=== PATIENT | female | born 1930 | race Caucasian/White ===

== ENCOUNTER 2018-02-10 08:24 | Observation (INO) | payer MEDICARE, OTHER ==
[2018-02-10 09:00] LABS: Hematocrit 42.9 % (37.0-47.0); Hemoglobin 13.8 gm/dL (12.5-16.0); Mean Cell Volume 91.9 fl (78-100); Mean Corpuscular Hemoglobin 29.6 pg (27-31); Mean Corpuscular Hgb Conc 32.2 g/dl (32-36); Mean Platelet Volume 9.9 fl (8-12.5); Neutrophil # 17.4 K/mm3 (1.3-6.0); Neutrophil % 93.1 % (42-75.0); Platelet Count 207 K/mm3 (150-450); Red Blood Count 4.67 M/mm3 (4.2-5.4); Red Cell Distribution Width 13.7 % (11.5-14.0); White Blood Count 18.7 K/mm3 (4.0-10.5)
[2018-02-10 09:12] LABS: Albumin * 3.3 gm/dl (3.4-5.0); Anion Gap 14.8 mmol/L (6.8-13.8); BUN/Creatinine Ratio 15.6 (9.0-21.6); Bilirubin, Total 0.5 mg/dL (0.0-1.1); Ca. Corrected For Albumin 9.5 mg/dL (8.4-10.2); Calcium * 9.3 mg/dL (7.9-10.9); Carbon Dioxide 26.2 mmol/L (24-32.6); Total Protein 7.4 gm/dL (6.2-8.2)
[2018-02-10] MEDS ORDERED: DEXTROSE 5 % IN WATER 100 ML BAG IV ONE (10:46)
--- NOTE | 2018-02-10 10:49 | ERNOTE ---
Time Seen by Provider: 02/10/18 10:28 Stated Complaint: URI Presenting Symptoms:: cough, fever, other - restless and apparently short of breath Source: snf records Exam Limitations: dementia Immunizations: IMMUNIZATION HX Immunizations Up to Date Yes History of Influenza Vaccine Yes Allergies/Adverse Reactions: Allergies No Known Allergies Allergy (Verified 02/10/18 08:46) Home Medications: HOME MEDICATIONS Atorvastatin Calcium [Lipitor] 10 mg PO DAILY 01/02/18 [Last Taken Unknown] Carbamide Peroxide [Debrox] 3 drp OTIC (EAR) Q7D 01/02/18 [Last Taken Unknown] Carboxymethylcellulose Sodium [Refresh Tears] 1 drp OPHTHALMIC (EYE) BID 01/02/18 [Last Taken Unknown] Cetirizine HCl [Zyrtec] 10 mg PO HS 01/02/18 [Last Taken Unknown] Cholecalciferol (Vitamin D3) [Vitamin D3] 2,000 unit PO DAILY 01/02/18 [Last Taken Unknown] Cyanocobalamin (Vitamin B-12) [Vitamin B-12] 1,000 mcg PO DAILY 01/02/18 [Last Taken Unknown] Fluticasone Propionate [Flovent Diskus] 50 mcg INHALATION BID 01/02/18 [Last Taken Unknown] Latanoprost/Pf [Latanoprost 0.005% Eye Drop] 1 drp EACHEYE HS 01/02/18 [Last Taken Unknown] Oxybutynin Chloride [Ditropan] 5 mg PO DAILY 01/02/18 [Last Taken Unknown] Sennosides/Docusate Sodium [Docusate Sodium-Sennosides Tab] 2 ea PO HS 01/02/18 [Last Taken Unknown] Sertraline HCl [Zoloft] 50 mg PO DAILY 01/02/18 [Last Taken Unknown] Wheat Dextrin [Benefiber] 1 ea PO DAILY 01/02/18 [Last Taken Unknown] acetaminophen 325 mg tablet 650 mg PO Q8H PRN tab 01/09/18 [Last Taken Unknown] benzonatate 200 mg capsule 200 mg PO TID PRN 01/09/18 [Last Taken Unknown] bisacodyl 10 mg rectal suppository 10 mg [place] DAILY PRN 01/09/18 [Last Taken Unknown] bisacodyl 5 mg tablet 10 mg PO .COMPLEX PRN tab 01/09/18 [Last Taken Unknown] hydrocodone 5 mg-acetaminophen 325 mg tablet 1 tab PO Q4H PRN 01/09/18 [Last Taken Unknown] magnesium hydroxide 400 mg/5 mL oral suspension 5 ml PO DAILY PRN 01/09/18 [Last Taken Unknown] alprazolam 0.25 mg tablet 0.25 mg PO BID-TID PRN 02/04/18 [Last Taken Unknown] furosemide 20 mg tablet 20 mg PO DAILY 02/04/18 [Last Taken Unknown] potassium chloride ER 10 mEq capsule,extended release 10 meq PO DAILY 02/04/18 [Last Taken Unknown] - History of Present Ilness Narrative: Patient has been more restless and irritable at the sn[facility] and was found to have a fever and to be apparently short of breath. Onset has been over the past 24 hours Timing: getting worse Severity: moderate Frequency/Possible Cause: Reports: no prior episodes Modifying Factors - Improves: Reports: nothing Modifying Factors - Worsens: Reports: nothing Associated Symptoms: Reports: cough Review of Systems - Review of Systems Constitutional: Present: See HPI EYE: Present: no symptoms reported ENT: Present: no symptoms reported Respiratory: Present: See HPI Cardiology: Present: no symptoms reported Gastrointestinal/Abdominal: Present: no symptoms reported Genitourinary: Present: no symptoms reported Musculoskeletal: Present: no symptoms reported Skin: Present: no symptoms reported Neurological: Present: other - dementia Endocrine: Present: no symptoms reported Hematologic/Lymphatic: Present: no symptoms reported Psych: Present: no symptoms reported Medical History (Last Reviewed 02/10/18 @ 08:46 by Janet Gar RN) Knee pain (Chronic) Dementia (Chronic) Osteoarthritis (Chronic) Hyperlipidemia (Chronic) Essential hypertension (Chronic) Type II diabetes mellitus (Chronic) Dementia Depressive disorder Left patella fracture Onset Date: ~2017 Tibial plateau fracture, left Onset Date: ~01/01/18 Urinary incontinence Surgical History: Surgical History (Last Reviewed 02/10/18 @ 08:46 by Janet Gar RN) Pacemaker Family History: Family History (Last Reviewed 02/10/18 @ 08:46 by Janet Gar RN) Mother Medical history unknown Father Medical history unknown Other unknown Social History: Preferred Language Greenlandic Do you have any roman catholic or Yes: denominational cultural preference? Smoking Status Unknown if ever smoked Alcohol Use sober Drug Use none (Last Updated 02/04/18 @ 16:29 by Claudio Denson MD) No Social History Section defined Physical Exam - Physical Exam General Appearance: Present: wd/wn, alert, moderate distress Head Exam: Present: normal inspection, no evidence of injury Eye Exam: Normal inspection: bilateral, PERRL: bilateral Ears, Nose, Throat: Present: normal ENT inspection, H, normal pharynx Neck: Present: normal inspection, nontender Respiratory: Present: no accessory muscle use, chest nontender, rales Cardiovascular/Chest: Present: regular rate, rhythm, no murmur, normal peripheral pulses Gastrointestinal/Abdominal: Present: normal bowel sounds, nontender, nondistended, soft, no organomegaly Rectal Exam: Present: deferred Pelvic Exam: Present: deferred Back Exam: Present: normal inspection, normal range of motion Extremity Exam: Present: normal inspection, non-tender, no edema, normal range of motion Neurological Exam: Present: alert, oriented, normal mood/affect Skin Exam: Present: normal color, warm/dry Lymphatic Exam: Present: no adenopathy ED Progress - Results and Orders Patient's Lab Results:: I have reviewed the patient's lab results. - Vital Signs Patient's Vital Signs:: I have reviewed the patient's vital signs. Vital Signs: Vital Signs 02/10/18 08:25 02/10/18 08:56 Temperature 38.1 C H 37.4 C Pulse Rate 92 Respiratory Rate 24 H Blood Pressure 141/90 H O2 Sat by Pulse Oximetry 90 L - X-Ray X-Ray #1 X-Ray: chest Interpretation: Reviewed by me - Progress/Reassessment Chief Complaint: Upper Respiratory Symptoms Plan - Plan Plan: Patient will be admitted for IV antibiotics, stabilization of the borderline hypoxia and hopefully be able to be moved over to oral antibiotics and then back to the snf Departure Clinical Impression: Pneumonia Qualifiers: Pneumonia type: due to unspecified organism Laterality: bilateral Lung location: unspecified part of lung Qualified Code(s): J18.9 - Pneumonia, unspe cified organism - Departure Disposition: Still a patient Condition: Fair Referrals: Dayanara Torres DO [Primary Care Provider] -
--- NOTE | 2018-02-10 12:08 | HP ---
Chief Complaint - Chief Complaint Date of Service: 02/10/18 Time of Service: 12:07 Chief Complaint: shortness of breath/fever. History of Present Illness: Leah Villegas, is an 87-year-old white female, with previous medical history of hypertension, hyperlipidemia, diabetes mellitus type 2, dementia, who was admitted on 02/10/2018 because of shortness of breath and fever. I am not able to get any history and physical from Nichole Estrella. My history is based on the emergency room notes which said that patient had been more restless and irritable at the residential on the day of admission. She was found to have a fever and was apparently short of breath and so she was sent to the emergency room. She was found to have an elevated white blood cell count of 18.7 and a chest x-ray which showed basilar opacities which could be atelectasis but cannot rule out multifocal pneumonia. She was then admitted for further treatment. Medical History (Last Reviewed 02/10/18 @ 12:17 by Kylah Mandel RN) Knee pain (Chronic) Dementia (Chronic) Osteoarthritis (Chronic) Hyperlipidemia (Chronic) Essential hypertension (Chronic) Type II diabetes mellitus (Chronic) Dementia Depressive disorder Left patella fracture Onset Date: ~2017 Tibial plateau fracture, left Onset Date: ~01/01/18 Urinary incontinence Surgical History: Surgical History (Last Reviewed 02/10/18 @ 12:17 by Kylah Mandel RN) Pacemaker Family History: Family History (Last Updated 02/10/18 @ 12:17 by Kylah Mandel RN) Mother Medical history unknown Father Medical history unknown Social History: Patient Lives/Resources [facility] Utilized Preferred Language Estonian Do you have any zoroastrianism or Yes: sikhism cultural preference? Smoking Status Unknown if ever smoked Have you smoked in the past 12 No months Alcohol Use sober Drug Use none (Last Updated 02/04/18 @ 16:29 by Claudio Denson MD) No Social History Section defined Review Of Systems (GEN) - Review of Systems Additional Comments: unobtainable due to dementia Immunizations: IMMUNIZATION HX Immunizations Up to Date Yes History of Influenza Vaccine Yes Allergies/Adverse Reactions: Allergies Allergy/AdvReac Type Severity Reaction Status Date / Time No Known Allergies Allergy Verified 02/10/18 11:42 Home Medications: HOME MEDICATIONS Atorvastatin Calcium [Lipitor] 10 mg PO DAILY 01/02/18 [Last Taken Unknown] Carbamide Peroxide [Debrox] 3 drp OTIC (EAR) Q7D 01/02/18 [Last Taken Unknown] Carboxymethylcellulose Sodium [Refresh Tears] 1 drp OPHTHALMIC (EYE) BID 01/02/18 [Last Taken Unknown] Cetirizine HCl [Zyrtec] 10 mg PO HS 01/02/18 [Last Taken Unknown] Cholecalciferol (Vitamin D3) [Vitamin D3] 2,000 unit PO DAILY 01/02/18 [Last Taken Unknown] Cyanocobalamin (Vitamin B-12) [Vitamin B-12] 1,000 mcg PO DAILY 01/02/18 [Last Taken Unknown] Fluticasone Propionate [Flovent Diskus] 1 spray NS BID 01/02/18 [Last Taken Unknown] Latanoprost/Pf [Latanoprost 0.005% Eye Drop] 1 drp EACHEYE HS 01/02/18 [Last Taken Unknown] Oxybutynin Chloride [Ditropan] 5 mg PO DAILY 01/02/18 [Last Taken Unknown] Sennosides/Docusate Sodium [Docusate Sodium-Sennosides Tab] 2 ea PO HS 01/02/18 [Last Taken Unknown] Sertraline HCl [Zoloft] 50 mg PO DAILY 01/02/18 [Last Taken Unknown] acetaminophen 325 mg tablet 650 mg PO Q8H PRN tab 01/09/18 [Last Taken Unknown] benzonatate 200 mg capsule 200 mg PO TID PRN 01/09/18 [Last Taken Unknown] bisacodyl 10 mg rectal suppository 10 mg [place] DAILY PRN 01/09/18 [Last Taken Unknown] bisacodyl 5 mg tablet 10 mg PO Q48H PRN tab 01/09/18 [Last Taken Unknown] hydrocodone 5 mg-acetaminophen 325 mg tablet 1 tab PO Q4H PRN 01/09/18 [Last Taken Unknown] magnesium hydroxide 400 mg/5 mL oral suspension 30 ml PO DAILY PRN 01/09/18 [Last Taken Unknown] alprazolam 0.25 mg tablet 0.25 mg PO TID 02/04/18 [Last Taken Unknown] furosemide 20 mg tablet 20 mg PO DAILY 02/04/18 [Last Taken Unknown] Potassium Chloride 10 meq PO DAILY 02/10/18 [Last Taken Unknown] Wheat Dextrin [Benefiber] 1 each PO BID 02/10/18 [Last Taken Unknown] Exam - Exam Vital Signs: Vital Signs - Last Taken Temp 37.1 C 02/10/18 11:42 Pulse 90 02/10/18 11:42 Resp 25 H 02/10/18 11:42 BP 111/70 02/10/18 11:42 Pulse Ox 89 L 02/10/18 11:42 Constitutional: Present: Alert - x 1, Mild distress, Elderly ENT Exam: Present: hard of hearing Eye Exam: bilateral eye: normal inspection, PERRL, EOMI Neck: Present: supple Respiratory: Present: decreased breath sounds, rhonchi, No wheezing Cardiovascular/Chest: Present: regular rate, rhythm, no JVD, no murmur Abdomen: Present: Normal bowel sounds, soft, nontender, nondistended Extremity: Present: no pedal edema, no calf tenderness Diagnostic Studies: Abnormal Lab Results 02/10/18 02/10/18 Range/Units 08:55 08:55 WBC 18.7 H (4.0-10.5) K/mm3 Immature Gran # (Auto) 0.08 H (0.000-0.0310) K/mm3 Neutrophils % 93.1 H (42-75.0) % Lymphocytes % 4.0 L (20-51) % Neutrophils # 17.4 H (1.3-6.0) K/mm3 Lymphocytes # 0.75 L (1.5-3.5) k/mm3 Anion Gap 14.8 H (6.8-13.8) mmol/L Est GFR (Non-Af Amer) 58 L (60-130) mL/min Random Glucose 179 H (70-110) mg/dL Albumin 3.3 L (3.4-5.0) gm/dl Laboratory Results WBC 18.7 K/mm3 (4.0-10.5) H 02/10/18 08:55 RBC 4.67 M/mm3 (4.2-5.4) 02/10/18 08:55 Hgb 13.8 gm/dL (12.5-16.0) 02/10/18 08:55 Hct 42.9 % (37.0-47.0) 02/10/18 08:55 MCV 91.9 fl (78-100) 02/10/18 08:55 MCH 29.6 pg (27-31) 02/10/18 08:55 MCHC 32.2 g/dl (32-36) 02/10/18 08:55 RDW 13.7 % (11.5-14.0) 02/10/18 08:55 Plt Count 207 K/mm3 (150-450) 02/10/18 08:55 MPV 9.9 fl (8-12.5) 02/10/18 08:55 Immature Gran % (Auto) 0.40 % (0.001-0.429) 02/10/18 08:55 Immature Gran # (Auto) 0.08 K/mm3 (0.000-0.0310) H 02/10/18 08:55 Neutrophils % 93.1 % (42-75.0) H 02/10/18 08:55 Lymphocytes % 4.0 % (20-51) L 02/10/18 08:55 Monocytes % 2.1 % (0.0-9) 02/10/18 08:55 Eosinophils % 0.2 % (0.0-3.0) 02/10/18 08:55 Basophils % 0.2 % (0.0-1.0) 02/10/18 08:55 Nucleated RBC % 0.0 k/mm3 (0-1) 02/10/18 08:55 Neutrophils # 17.4 K/mm3 (1.3-6.0) H 02/10/18 08:55 Lymphocytes # 0.75 k/mm3 (1.5-3.5) L 02/10/18 08:55 Monocytes # 0.4 k/mm3 (0.0-1.0) 02/10/18 08:55 Eosinophils # 0.0 k/mm3 (0.0-0.7) 02/10/18 08:55 Absolute Basophils 0.0 k/mm3 (0.0-0.1) 02/10/18 08:55 Sodium 141 mmol/L (132-142) 02/10/18 08:55 Plasma Sodium 142 mmol/L (130-142) 02/10/18 08:55 Potassium 4.0 mmol/L (3.4-4.6) 02/10/18 08:55 Chloride 104 mmol/L (97-106) 02/10/18 08:55 Carbon Dioxide 26.2 mmol/L (24-32.6) 02/10/18 08:55 Anion Gap 14.8 mmol/L (6.8-13.8) H 02/10/18 08:55 BUN 15 mg/dL (3-23) 02/10/18 08:55 Creatinine 0.96 mg/dL (0.4-1.4) 02/10/18 08:55 Est GFR (Non-Af Amer) 58 mL/min (60-130) L 02/10/18 08:55 BUN/Creatinine Ratio 15.6 (9.0-21.6) 02/10/18 08:55 Random Glucose 179 mg/dL (70-110) H 02/10/18 08:55 Calcium 9.3 mg/dL (7.9-10.9) 02/10/18 08:55 Calcium Adj for Albumin 9.5 mg/dL (8.4-10.2) 02/10/18 08:55 Total Bilirubin 0.5 mg/dL (0.0-1.1) 02/10/18 08:55 AST 27 U/L (0-48) 02/10/18 08:55 ALT 19 U/L (19-67) 02/10/18 08:55 Alkaline Phosphatase 143 U/L (50-170) 02/10/18 08:55 Total Protein 7.4 gm/dL (6.2-8.2) 02/10/18 08:55 Albumin 3.3 gm/dl (3.4-5.0) L 02/10/18 08:55 Assessment/Plan - Assessment/Plan (1) Pneumonia Assessment: will continue with IV antibiotics. Problem: Acute Qualifiers: Pneumonia type: due to unspecified organism Laterality: bilateral Lung location: unspecified part of lung Qualified Code(s): J18.9 - Pneumonia, unspecified organism (2) Dementia Problem: Chronic Qualifiers: Dementia type: unspecified type Dementia behavioral disturbance: without behavioral disturbance Qualified Code(s): F03.90 - Unspecified dementia without behavioral disturbance (3) Hyperlipidemia Problem: Chronic Qualifiers: Hyperlipidemia type: unspecified Qualified Code(s): E78.5 - Hyperlipidemia, unspecified (4) Essential hypertension Problem: Chronic
[2018-02-10] MEDS ORDERED: MAGNESIUM HYDROXIDE 30 ML UDC PO PRN (15:14)
[2018-02-10] MEDS ORDERED: BENZONATATE 100 MG CAPSULE PO PRN (15:14)
[2018-02-10] MEDS ORDERED: BISACODYL 5 MG TABLET.DR PO PRN (15:14)
[2018-02-10] MEDS ORDERED: ACETAMINOPHEN 325 MG TABLET PO PRN (15:14)
[2018-02-10] MEDS ORDERED: BUDESONIDE 0.5 MG/2 ML VIAL.NEB IH ONE (16:41)
[2018-02-10] MEDS: ALPRAZolam 0.25 MG TABLET PO SCH (17:34)
[2018-02-10] MEDS: BUDESONIDE 0.5 MG/2 ML VIAL.NEB IH SCH ×2 (17:41→19:07)
[2018-02-10] MEDS ORDERED: LORATADINE 10 MG TABLET PO SCH (21:00)
[2018-02-10] MEDS ORDERED: LATANOPROST 25 DROP BTL EACHEYE SCH (21:00)
[2018-02-10] MEDS ORDERED: SENNOSIDES/DOCUSATE SODIUM 1 TAB TABLET PO SCH (21:00)
[2018-02-10] MEDS: POLYVINYL ALCOHOL 150 DROP BTL OP SCH (21:45)
[2018-02-10] MEDS: NYSTATIN 15 APPL BTL TP SCH (21:48)
[2018-02-10] MEDS: PSYLLIUM SEED 1 PACKET PACKET PO SCH (21:55)
[2018-02-11] MEDS: BUDESONIDE 0.5 MG/2 ML VIAL.NEB IH SCH (06:20)
[2018-02-11] MEDS ORDERED: OXYBUTYNIN CHLORIDE 5 MG TABLET PO SCH (09:00)
[2018-02-11] MEDS ORDERED: POTASSIUM CHLORIDE 10 MEQ TABLET.SA PO SCH (09:00)
[2018-02-11] MEDS ORDERED: CYANOCOBALAMIN 1,000 MCG TABLET PO SCH (09:00)
[2018-02-11] MEDS ORDERED: SERTRALINE HCL 50 MG TABLET PO SCH (09:00)
[2018-02-11] MEDS ORDERED: FUROSEMIDE 20 MG TABLET PO SCH (09:00)
[2018-02-11] MEDS ORDERED: CHOLECALCIFEROL 1,000 UNIT CAPSULE PO SCH (09:00)
[2018-02-11] MEDS ORDERED: ROSUVASTATIN CALCIUM 10 MG TABLET PO SCH (09:00)
[2018-02-11] MEDS: ALPRAZolam 0.25 MG TABLET PO SCH ×2 (10:25→13:17)
[2018-02-11] MEDS: POLYVINYL ALCOHOL 150 DROP BTL OP SCH ×2 (10:26→10:38)
[2018-02-11] MEDS: NYSTATIN 15 APPL BTL TP SCH (10:27)
[2018-02-11] MEDS: PSYLLIUM SEED 1 PACKET PACKET PO SCH (10:35)
--- NOTE | 2018-02-11 10:49 | DS ---
(1) Pneumonia Problem: Acute Qualifiers: Pneumonia type: due to unspecified organism Laterality: bilateral Lung location: unspecified part of lung Qualified Code(s): J18.9 - Pneumonia, unspecified organism (2) Leukocytosis Problem: Acute (3) Dementia Problem: Chronic Qualifiers: Dementia type: unspecified type Dementia behavioral disturbance: without behavioral disturbance Qualified Code(s): F03.90 - Unspecified dementia without behavioral disturbance Description of Stay: ADMISSION DATE: 02/10/2018 DISCHARGE DATE: 02/11/[address] Downey: Leah Villegas, is an 87-year-old white female, with previous medical history of hypertension, hyperlipidemia, diabetes mellitus type 2, dementia, who was admitted on 02/10/2018 because of shortness of breath and fever. I am not able to get any history and physical from Nichole Estrella. My history is based on the emergency room notes which said that patient had been more restless and irritab le at the [facility] on the day of admission. She was found to have a fever and was apparently short of breath and so she was sent to the emergency room. She was found to have an elevated white blood cell count of 18.7 and a chest x- ray which showed basilar opacities which could be atelectasis but cannot rule out multifocal pneumonia. She was then admitted for further treatment. HOSPITAL COURSE: The patient was admitted to the hospital for pneumonia, likely multifocal pneumonia. Overall, her admission was uneventful and she was discharged in fair but stable condition back to her long term care administrator care facility at [facility] where she resides in their dementia unit. We will treat the patient with an additional 7 days of Levaquin. We will repeat labs in a couple days to monitor for improvement in her white blood cell count and procalcitonin level. We will also plan to repeat a CXR in 1 month to monitor for resolution. I will see the patient in follow-up on Saturday02/14/2018 during my usual [facility] rounds. Procedures Performed: none Results and Findings: Pending Mircobiology Results 02/10/18 09:00 Blood Blood Culture - Preliminary NO GROWTH 24 HOURS 02/10/18 09:15 Blood Blood Culture - Preliminary NO GROWTH 24 HOURS Lab Pending Results 02/10/18 08:55: WBC 18.7 H, RBC 4.67, Hgb 13.8, Hct 42.9, MCV 91.9, MCH 29.6, MCHC 32.2, RDW 13.7, Plt Count 207, MPV 9.9, Immature Gran % (Auto) 0.40, Immature Gran # (Auto) 0.08 H, Neutrophils % 93.1 H, Lymphocytes % 4.0 L, Monocytes % 2.1, Eosinophils % 0.2, Basophils % 0.2, Nucleated RBC % 0.0, Neutrophils # 17.4 H, Lymphocytes # 0.75 L, Monocytes # 0.4, Eosinophils # 0.0, Absolute Basophils 0.0 02/10/18 08:55: Sodium 141, Plasma Sodium 142, Potassium 4.0, Chloride 104, Carbon Dioxide 26.2, Anion Gap 14.8 H, BUN 15, Creatinine 0.96, Est GFR (Non-Af Amer) 58 L, BUN/Creatinine Ratio 15.6, Random Glucose 179 H, Calcium 9.3, Calcium Adj for Albumin 9.5, Total Bilirubin 0.5, AST 27, ALT 19, Alkaline Phosphatase 143, Total Protein 7.4, Albumin 3.3 L 02/11/18 09:53: B-Natriuretic Peptide 1551 H 02/11/18 09:53: Procalcitonin 7.74 H Discharge Location: [facility] Disposition: Intermediate Care Facility ICF Condition: Fair Level of Care: ICF Discharge Activity: Activity as tolerated Discharge Diet: Resume usual diet Referrals: Dayanara Torres DO [Primary Care Provider] - Additional Patient Instructions (free text): -Dr. Torres will follow-up and see the patient during [facility] rounds on Saturday02/14/2018 -Check CBC, BMP and procalcitonin on , 02/13/2018 -Follow-up CXR in 1 month to monitor for complete resolution Prescriptions (Any new or edited meds): Acetaminophen 650 mg PO Q4H PRN #30 tab PRN Reason: Mild Pain (Pain Scale 1-3) HYDROcodone/ACETAMINOPHEN [Hydrocodone-Acetamin 5-325 mg] 1 tab PO Q4H PRN #25 tab PRN Reason: Severe Pain (Pain Scale 7-10) Levofloxacin [Levaquin] 750 mg PO DAILY 7 Days #7 tablet Nystatin [Mycostatin Powder] 1 appl TP BID PRN #1 btl PRN Reason: Rash Complete Home Medications List: Complete Home Medication List: Atorvastatin Calcium [Lipitor] 10 mg PO DAILY 01/02/18 Carboxymethylcellulose Sodium [Refresh Tears] 1 drp OPHTHALMIC (EYE) BID 01/02/18 Cetirizine HCl [Zyrtec] 10 mg PO HS 01/02/18 Cholecalciferol (Vitamin D3) [Vitamin D3] 2,000 unit PO DAILY 01/02/18 Cyanocobalamin (Vitamin B-12) [Vitamin B-12] 1,000 mcg PO DAILY 01/02/18 Fluticasone Propionate [Flovent Diskus] 1 spray NS BID 01/02/18 Latanoprost/Pf [Latanoprost 0.005% Eye Drop] 1 drp EACHEYE HS 01/02/18 Oxybutynin Chloride [Ditropan] 5 mg PO DAILY 01/02/18 Sennosides/Docusate Sodium [Docusate Sodium-Sennosides Tab] 2 ea PO HS 01/02/18 Sertraline HCl [Zoloft] 50 mg PO DAILY 01/02/18 bisacodyl 10 mg rectal suppository 10 mg [place] DAILY PRN 01/09/18 bisacodyl 5 mg tablet 10 mg PO Q48H PRN tab 01/09/18 magnesium hydroxide 400 mg/5 mL oral suspension 30 ml PO DAILY PRN 01/09/18 alprazolam 0.25 mg tablet 0.25 mg PO TID 02/04/18 furosemide 20 mg tablet 20 mg PO DAILY 02/04/18 Potassium Chloride 10 meq PO DAILY 02/10/18 Wheat Dextrin [Benefiber] 1 each PO BID 02/10/18 Acetaminophen 650 mg PO Q4H PRN #30 tab 02/11/18 HYDROcodone/ACETAMINOPHEN [Hydrocodone-Acetamin 5-325 mg] 1 tab PO Q4H PRN #25 tab 02/11/18 Levofloxacin [Levaquin] 750 mg PO DAILY 7 Days #7 tablet 02/11/18 Nystatin [Mycostatin Powder] 1 appl TP BID PRN #1 btl 02/11/18 Amb Orders for Discharge: Basic Metabolic Panel Time Frame: 02/13/18, Location: Laboratory CBC Time Frame: 02/13/18, Location: Laboratory Chest Single View * Time Frame: 1 Month, Location: Radiology
[2018-02-11 14:59] VITALS: BP 135/61
== END 2018-02-11 16:30 ==
LOC: ER 08:24 → MS 08:24
PROVIDERS: ADMIT Internal Medicine; ATTEND Internal Medicine
CPT/HCPCS: 36415; 71010; 71045; 80053; 83519; 83880; 84145; 85025; 87040; 87081; 90686; 94640; 94664; 96365; 99285; G0008; G0378